=== PATIENT | female | born 2000 | race Hispanic/Latino ===

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

== ENCOUNTER 2021-05-05 14:30 | Emergency (ER) | payer SELFPAY ==
--- NOTE | 2021-05-05 16:42 | RAD REPORT ---
EXAM DESCRIPTION: RAD - Chest Pa And Lat (2 Views) - 05/05/2021 4:12 pm CLINICAL HISTORY: SOB COMPARISON: None TECHNIQUE: Frontal and lateral views of the chest were obtained. FINDINGS: The lungs are clear. Heart size is normal and central vasculature is within normal limit s. No pleural effusion or pneumothorax seen. No acute bony finding noted. No aortic abnormality. IMPRESSION: No acute cardiopulmonary process.
--- NOTE | 2021-05-05 19:29 | ER ---
Nurse's Notes [facility] [place], [place] Name: Mildred Coffey Age: 21 yrs Sex: Female : 2000 Arrival Date: 05/05/2021 Time: 14:32 Bed Treatment Private MD: Diagnosis: SARS-associated coronavirus as the cause of diseases classified elsewhere Presentation: 05/05 15:13 Chief complaint: Patient states: Covid+ 04/26/2021. Reports increasing SOB. Coronavirus ca1 screen: Client denies travel out of the [place] in the last 14 days. Client reports previous positive COVID test result. Date of collection: April 26, 2021. Ebola Screen: Patient negative for fever greater than or equal to 101.5 degrees Fahrenheit, and additional compatible Ebola Virus Disease symptoms Patient denies exposure to infectious person. Patient denies travel to an Ebola-affected area in the 21 days before illness onset. No symptoms or risks identified at this time. Initial Sepsis Screen: Does the patient meet any 2 criteria? No. Patient's initial sepsis screen is negative. Does the patient have a suspected source of infection? No. Patient's initial sepsis screen is negative. Risk Assessment: Do you want to hurt yourself or someone else? Patient reports no desire to harm self or others. Onset of symptoms was May 05, 2021. 15:13 Method Of Arrival: Ambulatory ca1 15:13 Acuity: BILLY 3 ca1 Triage Assessment: 19:42 General: Appears in no apparent distress. Behavior is calm, cooperative, appropriate kg for age, quiet. Respiratory: Onset: The symptoms/episode began/occurred . 19:42 Respiratory: the patient has mild shortness of breath. 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 - Social history:: Smoking status: Patient denies any tobacco usage or history of. Screenin:34 Abuse screen: Denies threats or abuse. Denies injuries from another. Nutritional kg screening: No deficits noted. Tuberculosis screening: No symptoms or risk factors identified. Fall Risk None identified. No fall in past 12 months (0 pts). No secondary diagnosis (0 pts). No IV (0 pts). Ambulatory Aid- None/Bed Rest/Nurse Assist (0 pts). Gait- Normal/Bed Rest/Wheelchair (0 pts) Mental Status- Total Knight Fall Scale indicates No Risk (0-24 pts). Assessment: 19:15 General: Appears in no apparent distress. Behavior is calm, cooperative, appropriate kg for age, quiet. Pain: Denies pain. Complains of pain in chest Pain currently is 0 out of 10 on a pain scale. at worst was 8 out of 10 on a pain scale. level that patient reports is acceptable is 4 out of 10 on a pain scale. Quality of pain is described as sharp, Is episodic. Neuro: No deficits noted. Cardiovascular: Reports nausea, shortness of breath, Sharp pain with deep breath Heart tones S1 S2 Capillary refill < 3 seconds Rhythm is regular. Respiratory: Reports shortness of breath pain with respiration since Airway is patent Trachea midline Respiratory effort is even, unlabored, relaxed, Respiratory pattern is regular, Breath sounds are clear bilaterally. GI: Reports nausea. : No deficits noted. EENT: No deficits noted. Derm: No deficits noted. Musculoskeletal: No deficits noted. Vital Signs: 15:13 BP 107 / 76; Pulse 108; Resp 18 S; Temp 98(TE); Pulse Ox 100% ; Weight 63.5 kg (R); ca1 Height 5 ft. 2 in. (157.48 cm) (R); 15:13 Body Mass Index 25.61 (63.50 kg, 157.48 cm) ca1 ED Course: 14:32 Patient arrived in ED. rg4 15:14 Triage completed. ca1 15:15 Arm band placed on right wrist. ca1 16:12 XRAY Chest Pa And Lat (2 Views) In Process Unspecified. EDMS 19:10 Brit Baird, AUREA is Primary Nurse. kg 19:11 Donavon Tim PA is PHCP. cp 19:11 Mac Rene MD is Attending Physician. cp 19:34 Patient has correct armband on for positive identification. Bed in low position. Call kg light in reach. Side rails up X2. 19:35 No provider procedures requiring assistance completed. Patient did not have IV access kg during this emergency room visit. Administered Medications: No medications were administered Outcome: 19:28 Discharge ordered by . cp 19:35 Discharged to home ambulatory. kg 19:35 Condition: stable 19:35 Discharge instructions given to patient, Instructed on discharge instructions, follow up and referral plans. Demonstrated understanding of instructions, follow-up care, medications, Prescriptions given X 19:42 Prescriptions given X 3. kg 19:42 Patient left the ED. kg Signatures: Dispatcher [employer] EDMS Donavon Tim PA PA cp Garcia, Rubi rg4 Myra Savage, RN RN ca1 Brit Baird RN RN kg
--- NOTE | 2021-05-05 19:29 | EDPHYS ---
Physician Documentation [facility] Name: Mildred Coffey Age: 21 yrs Sex: Female : 2000 Arrival Date: 05/05/2021 Time: 14:32 Bed Treatment Private MD: ED Physician Mac Rene HPI: 05/05 19:15 This 21 yrs old Female presents to ER via Ambulatory with complaints of cp Breathing Difficulty. 19:15 The patient has shortness of breath with light activity. cp 19:15 Onset: The symptoms/episode began/occurred gradually. cp 19:15 Duration: The symptoms are continuous, and are steadily getting worse. The patient's cp shortness of breath is aggravated by exertion. Associated signs and symptoms: Pertinent negatives: chest pain, productive cough, diaphoresis, fever, vomiting. Severity of symptoms: in the emergency department the symptoms are unchanged despite home interventions. 19:15 Patient reports testing positive for COVID-10 on 04-26-2021. 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 - Social history:: Smoking status: Patient denies any tobacco usage or history of. ROS: 19:20 Constitutional: Negative for body aches, chills, fever, poor PO intake. cp 19:20 Eyes: Negative for injury, pain, redness, and discharge. cp 19:20 ENT: Negative for ear pain, sore throat, difficulty swallowing, difficulty handling secretions. 19:20 Cardiovascular: Negative for chest pain, edema, palpitations. 19:20 Respiratory: Positive for cough, with no reported sputum, shortness of breath, on exertion. Negative for wheezing. 19:20 Abdomen/GI: Negative for abdominal pain, nausea, vomiting, and diarrhea. 19:20 Back: Negative for radiated pain. 19:20 Neuro: Negative for altered mental status, dizziness, headache, syncope, weakness. 19:20 All other systems are negative. Exam: 19:25 Constitutional: The patient appears in no acute distress, alert, awake, cp non-diaphoretic, non-toxic, well developed, well nourished. 19:25 Head/Face: Normocephalic, atraumatic. cp 19:25 Eyes: Periorbital structures: appear normal, Conjunctiva: normal, no exudate, no injection, Sclera: no appreciated abnormality, Lids and lashes: appear normal, bilaterally. 19:25 ENT: External ear(s): are unremarkable, Nose: is normal, Mouth: Lips: moist, Oral mucosa: pink and intact, moist, Posterior pharynx: is normal, airway is patent, no erythema, no exudate. 19:25 Neck: ROM/movement: is normal, is supple, no meningismus, no nuchal rigidity. 19:25 Chest/axilla: Inspection: normal, Palpation: is normal, no crepitus, no tenderness. 19:25 Cardiovascular: Rate: tachycardic, Rhythm: regular, Edema: is not appreciated. 19:25 Respiratory: the patient does not display signs of respiratory distress, Respirations: normal, no use of accessory muscles, no retractions, labored breathing, is not present, Breath sounds: are clear throughout, no decreased breath sounds, no stridor, no wheezing. 19:25 Abdomen/GI: Exam negative for discomfort, distension, guarding, Inspection: abdomen appears normal. 19:25 Back: pain, is absent, ROM is normal. 19:25 Skin: cellulitis, is not appreciated, no rash present. 19:25 Neuro: Orientation: to person, place \T\ time. Mentation: is normal, Motor: moves all fours, strength is normal. 19:30 ECG was reviewed by the Attending Physician. cp Vital Signs: 15:13 BP 107 / 76; Pulse 108; Resp 18 S; Temp 98(TE); Pulse Ox 100% ; Weight 63.5 kg (R); ca1 Height 5 ft. 2 in. (157.48 cm) (R); 15:13 Body Mass Index 25.61 (63.50 kg, 157.48 cm) ca1 MDM: 19:11 Patient medically screened. cp 19:25 Differential diagnosis: asthma, Bronchitis pneumonia, Pneumothorax pulmonary edema, cp Pulmonary Embolism. 19:28 Data reviewed: vital signs, nurses notes, radiologic studies, plain films. cp 19:28 Test interpretation: by ED physician or midlevel provider: plain radiologic studies. cp Counseling: I had a detailed discussion with the patient and/or guardian regarding: the historical points, exam findings, and any diagnostic results supporting the discharge/admit diagnosis, radiology results, to return to the emergency department if symptoms worsen or persist or if there are any questions or concerns that arise at home. ED course: VSS. Patient appears non-toxic and no signs of respiratory distress. Will discharge to home for continued monitoring. 05/05 15:15 Order name: XRAY Chest Pa And Lat (2 Views); Complete Time: 19:11 ca1 05/05 19:11 Interpretation: Report reviewed. cp EC:30 Rate is 85 beats/min. Rhythm is regular. CA interval is normal. QRS interval is normal. cp QT interval is normal. T waves are Inverted in lead aVR. Interpreted by me. Reviewed by me. Administered Medications: No medications were administered Disposition: 05/06 02:57 Co-signature as Attending Physician, Mac Rene MD. [email or web address] Disposition Summary: 05/05/21 19:28 Discharge Ordered Location: Home cp Problem: new cp Symptoms: are unchanged cp Condition: Stable cp Diagnosis - SARS-associated coronavirus as the cause of diseases classified elsewhere cp Followup: cp - With: Private Physician - When: 2 - 3 days - Reason: Worsening of condition Discharge Instructions: - Discharge Summary Sheet cp - COVID-19 cp - Things to Know about the COVID-19 Pandemic - [facility] cp - 10 Things You Can Do to Manage Your COVID-19 Symptoms at Home - [facility] cp - COVID-19: Quarantine vs. Isolation - [facility] cp - Prevent the Spread of COVID-19 if You Are Sick - [facility] cp Forms: - Medication Reconciliation Form cp - Thank You Letter cp - Antibiotic Education cp - Prescription Opioid Use cp Prescriptions: - albuterol sulfate 90 mcg/actuation Inhalation HFA aerosol inhaler - inhale 1 puff by INHALATION route every 4-6 hours As needed; 1 Inhaler; cp Refills: 0, Product Selection Permitted - Tessalon Perles 100 mg Oral Capsule - take 2 capsule by ORAL route every 8 hours As needed; 30 capsule; Refills: 0, cp Product Selection Permitted - Prednisone 20 mg Oral Tablet - take 2 tablets by ORAL route once daily for 5 days; 10 tablet; Refills: 0, cp Product Selection Permitted Signatures: Dispatcher [employer] Donavon Cannon PA PA cp Hussein, Myra, RN RN ca1 Mac Rene MD MD [email or web address] Corrections: (The following items were deleted from the chart) 17:48 05/05 19:30 Differential diagnosis: asthma, Bronchitis pneumonia, Pneumothorax cp pulmonary edema, Pulmonary Embolism cp
[2021-05-05 19:48] VITALS: BP 107/76; TEMP 98; O2SAT 100
--- NOTE | 2021-05-06 10:50 | EKG ---
Test Date: 2021-05-05 Test Time: 19:24:22 Aerial Photograph Interpreter: TIANA MEASUREMENT RESULTS: Intervals: Rate: 85 RI: 138 QRSD: 80 QT: 348 QTc: 414 [place]: P: 63 RI: 138 QRS: 96 T: 56 INTERPRETIVE STATEMENTS: Normal sinus rhythm Rightward axis Borderline ECG No previous ECG available for comparison Electronically Signed On 05-06-21 10:48:16 CDT by Remy Bennett
== END 2021-05-05 19:42 | disposition home or self-care (01) ==
LOC: ER 14:30
DX: U07.1 COVID-19 (principal)
CPT/HCPCS: 71046; 93005; 99283